=== PATIENT | female | born 1995 | race African-American/Black ===

== ENCOUNTER 2017-06-12 22:31 | Inpatient (IN) | payer MEDICAID ==
[2017-06-12] MEDS: Lactated Ringers 1,000 ML IV SCH (23:10)
[2017-06-12] MEDS: Nalbuphine 10 MG/1 ML Vial IVPUSH ONE (23:20)
--- NOTE | 2017-06-13 00:08 | PCM.LDHP ---
L&D History of Present Illness - General Date of Service: 06/12/17 Admit Problem/Dx: Admission Diagnosis/Problem Admission Diagnosis/Problem 06/12/17 23:57 21 yo G1 EDC 06/21/2017 38 6/7wks. Comes in labor, O+, RI, GBS pos. Source of Information: Patient History Limitations: Reports: No Limitations - History of Present Illness Timing/Duration: Reports: minutes: Location, : Reports: Abdomen Quality: Reports: Stabbing Severity: Severe Pain Score: 8 Improves with: Reports: None Worsens with: Reports: None Associated Symptoms: Reports: N - Related Data Allergies/Adverse Reactions: Allergies Allergy/AdvReac Type Severity Reaction Status Date / Time No Known Allergies Allergy Verified 06/12/17 23:13 H&P Review of Systems - Review of Systems: Review Of Systems: See Below General: Reports: No Symptoms HEENT: Reports: No Symptoms Pulmonary: Reports: No Symptoms Cardiovascular: Reports: No Symptoms Gastrointestinal: Reports: No Symptoms Genitourinary: Reports: No Symptoms Musculoskeletal: Reports: No Symptoms Skin: Reports: No Symptoms Psychiatric: Reports: No Symptoms Neurological: Reports: No Symptoms Hematologic/Lymphatic: Reports: No Symptoms Immunologic: Reports: No Symptoms L&D Exam - Exam Exam: See Below - Vital Signs Weight: 61.235 kg - OB Specific Fundal Height In cm: 39 - Problem List (1) Supervision of normal IUP (intrauterine ) in primigravida SNOMED Code(s): 69598880, [id number], 476691726 ICD Code: Z34.00 - ENCNTR FOR SUPRVSN OF NORMAL FIRST , UNSP TRIMESTER Status: Acute Priority: High Current Visit: Yes Qualifiers: Trimester: third trimester Qualified Code(s): Z34.03 - Encounter for supervision of normal first , third trimester (2) Non-reassuring electronic monitoring tracing SNOMED Code(s): 198003916 ICD Code: O76 - ABNLT IN HEART RATE AND RHYTHM COMP LABOR AND DELIVERY Status: Acute Priority: High Current Visit: Yes Problem List Initiated/Reviewed/Updated: Yes Assessment/Plan Comment:: Labor A:21 yo G1 EDC 06/21/2017 38 6/7wks. Comes in labor, O+, RI, GBS pos. P: Stat due to NRFHT. Dr Ingram called to BS to assess patient. OR staff called to come. Anes here.
[2017-06-13] MEDS ORDERED: ceFAZolin 1 GM in Premix Bag 1 BAG IV ONE (00:11)
[2017-06-13] MEDS ORDERED: Sodium Chloride 0.9% 2.5 ML Syringe FLUSH PRN (00:11)
[2017-06-13] MEDS ORDERED: Sodium Chloride 0.9% 10 ML Syringe FLUSH PRN (00:11)
[2017-06-13] MEDS ORDERED: Citric Acid/Sodium Citrate Solution 30 ML Cup PO SCH (00:15)
[2017-06-13] MEDS ORDERED: Oxytocin/0.9 % Sodium Chloride 30 UNIT/500 ML BAG IV SCH (00:15)
[2017-06-13] MEDS: Lactated Ringers 1,000 ML IV SCH ×3 (00:15→11:24)
[2017-06-13] MEDS ORDERED: Propofol 200 MG/20 ML SDV ONE (00:19)
[2017-06-13] MEDS ORDERED: Midazolam 1 MG/ML 2 ML SDV ONE (00:19)
[2017-06-13] MEDS ORDERED: Rocuronium 10 MG/ML 10 ML Syringe ONE (00:19)
[2017-06-13] MEDS ORDERED: fentaNYL 250 MCG/5 ML SDV ONE (00:19)
[2017-06-13] MEDS ORDERED: Ondansetron 4 MG/2 ML SDV ONE ×2 (00:19→00:53)
[2017-06-13] MEDS ORDERED: Succinylcholine/Normal Saline 200 MG/10 ML Syringe ONE (00:19)
[2017-06-13] MEDS ORDERED: ceFAZolin 1 GM Vial ONE (00:23)
[2017-06-13] MEDS ORDERED: Sodium Chloride 0.9% 20 ML ONE ×2 (00:23→00:48)
[2017-06-13] MEDS ORDERED: Oxytocin 10 Units/1 ML SDV ONE (00:24)
[2017-06-13] MEDS ORDERED: Neostigmine Methylsulfate 1 MG/ML 5 ML Syringe ONE (00:48)
[2017-06-13] MEDS ORDERED: Glycopyrrolate 0.2 MG/ML SDV ONE ×2 (00:48→00:49)
[2017-06-13] MEDS ORDERED: Octyl 2-Cyanoacrylate 1 Tube ONE (00:53)
[2017-06-13] MEDS ORDERED: HYDROmorphone 2 MG/ML SDV ONE (00:58)
[2017-06-13] MEDS ORDERED: Ondansetron 4 MG/2 ML SDV IVPUSH PRN (00:59)
[2017-06-13] MEDS ORDERED: Bisacodyl 10 MG Supp RECTAL PRN (00:59)
[2017-06-13] MEDS ORDERED: diphenhydrAMINE 50 MG/ML SDV IVPUSH PRN (00:59)
[2017-06-13] MEDS ORDERED: Acetaminophen/oxyCODONE 325-5 MG Tab PO PRN (00:59)
[2017-06-13] MEDS ORDERED: Lanolin 100% Cream 7 GM Tube TOP PRN (00:59)
--- NOTE | 2017-06-13 00:59 | PCM.OPNOTE ---
- General Post-Op/Procedure Note Date of Surgery/Procedure: 06/13/17 Operative Procedure(s): Emergency C/Section IUP38+ Pre Op Diagnosis: IUP38+ distress Post-Op Diagnosis: Same Anesthesia Technique: General ET Tube Primary Surgeon: Franck Ingram Box Toe Flanger Stitchdowns: Sandra Duke EBL in mLs: 800 Complications: None Condition: Good
[2017-06-13] MEDS ORDERED: fentaNYL 100 MCG/2 ML SDV IVPUSH PRN (01:26)
[2017-06-13] MEDS ORDERED: Meperidine PF 25 MG/ML Syringe IVPUSH ONE (01:27)
[2017-06-13] MEDS: Ketorolac 30 MG/ML SDV IVPUSH SCH ×4 (01:27→19:25)
--- NOTE | 2017-06-13 01:36 | OR ---
SURGEON: Franck Ingram MD DATE OF PROCEDURE: 06/13/2017 PREOPERATIVE DIAGNOSES: 1. Intrauterine , 38 plus. 2. distress. POSTOPERATIVE DIAGNOSES: 1. Intrauterine , 38 plus. 2. distress. OPERATION PERFORMED: Emergency low transverse section. BALL TRUING MACHINE OPERATOR: Sandra Duke CNM. LACE SEWER: Alexandra Hutchison MD ANESTHESIA: General with endotracheal intubation, Alexsander Fry. ESTIMATED BLOOD LOSS: 800 mL. COMPLICATIONS: None. FINDING: A female fetus in a vertex position, and there were 8 nuchal cord wrapped around the neck of the baby, and there was a thick meconium upon entering the uterus. INDICATION FOR SURGERY: This patient is 21. She is primigravida. She is followed in the clinic primarily with our nurse home care attendant. The patient is 38 plus weeks. She has presented into Labor and Delivery in active labor. At the time of the admission, she was 2 cm with bulging bag of water. However, the patient did have repeat late deceleration with a slow recovery and the heart rate was category 2, so a decision was made to do emergency low transverse section. PROCEDURE IN DETAIL: The patient was brought to the OR, properly identified, and after adequate level of general anesthesia with a Chavez catheter in the bladder, the patient prior to that, prepped and draped in sterile fashion as usual. Low transverse Pfannenstiel skin incision was done. Zurdo fascia and rectus fascia were opened in direction of the incision. The 2 recti muscles were . Peritoneal cavity was entered and then low transverse uterine incision was done and extended manually and the fetus was in the vertex position. It is noted that once the head was delivered, there were 8 nuchal cords wrapped around the baby head and fetus was delivered immediately. The cord was clamped and the fetus was handed to Dr. Hutchison and the resuscitating team for resuscitation immediately and then the placenta delivered spontaneous and then part of this had to be removed manually and the placenta was sent for histopathology, and repair of the lower uterine segment was done with 2-0 Vicryl continuous interlocking in 2 layers. Reperitonealization done with 3-0 Vicryl continuous. Then, the peritoneal cavity evacuated completely from blood and blood clot and closed with 3-0 Vicryl continuous. The rectus fascia was closed with #1 PDS single strand continuous. The Zurdo fascia with 3-0 Vicryl continuous. The skin closed with 3-0 Vicryl on a Constantine needle and Dermabond. Instrument and sponge count were correct. The patient tolerated the procedure well, went to recovery room in stable general condition. At the time of the dictation, the score and the weight of the fetus are not known at this time. KRYSTIAN / CAMMY /[id number]
--- NOTE | 2017-06-13 01:44 | PCM.POSTAN ---
POST ANESTHESIA ASSESSMENT - MENTAL STATUS Mental Status: Alert, Oriented - RESPIRATORY Respiratory Status: Respiratory Rate WNL, Airway Patent, O2 Saturation Stable - CARDIOVASCULAR CV Status: Pulse Rate WNL, Blood Pressure Stable - GASTROINTESTINAL GI Status: No Symptoms - POST OP HYDRATION Hydration Status: Adequate & Stable
--- NOTE | 2017-06-13 02:41 | PCM.PREANE ---
Preanesthetic Assessment - Anesthesia/Transfusion/Family Hx Anesthesia History: Prior Anesthesia Without Reaction Family History of Anesthesia Reaction: No Transfusion History: No Prior Transfusion(s) - Review of Systems General: No Symptoms Pulmonary: No Symptoms Cardiovascular: No Symptoms Gastrointestinal: No Symptoms Neurological: No Symptoms Other: Reports: None - Physical Assessment NPO Status Date: 06/12/17 NPO Status Time: 22:00 O2 Sat by Pulse Oximetry: 98 Respiratory Rate: 27 Vital Signs: Last Vital Signs Temp 96.8 F 06/13/17 01:10 Pulse 79 06/13/17 01:40 Resp 27 H 06/13/17 01:40 BP 136/85 06/13/17 01:40 Pulse Ox 98 06/13/17 01:40 Height: 5 ft 4 in Weight: 61.235 kg ASA Class: 2E Mental Status: Alert & Oriented x3 Airway Class: Mallampati = 2 Dentition: Reports: Normal Dentition Thyro-Mental Finger Breadths: 3 Mouth Opening Finger Breadths: 3 ROM/Head Extension: Full Lungs: Clear to Auscultation, Normal Respiratory Effort Cardiovascular: Regular Rate, Regular Rhythm - Lab Values: Laboratory Last Values WBC 11.09 K/uL (4.0-11.0) H 06/13/17 00:24 RBC 3.87 M/uL (4.30-5.90) L 06/13/17 00:24 Hgb 9.9 g/dL (12.0-16.0) L 06/13/17 00:24 Hct 31.4 % (36.0-46.0) L 06/13/17 00:24 MCV 81.1 fL (80.0-98.0) 06/13/17 00:24 MCH 25.6 pg (27.0-32.0) L 06/13/17 00:24 MCHC 31.5 g/dL (31.0-37.0) 06/13/17 00:24 RDW Std Deviation 44.6 fl (28.0-62.0) 06/13/17 00:24 RDW Coeff of Yonatan 16 % (11.0-15.0) H 06/13/17 00:24 Plt Count 131 K/uL (150-400) L 06/13/17 00:24 Nucleated RBC % 0.8 /100WBC 06/13/17 00:24 Nucleated RBCs # 0 K/uL 06/13/17 00:24 Blood Type O POSITIVE 06/13/17 00:24 Antibody Screen NEGATIVE 06/13/17 00:24 - Allergies Allergies/Adverse Reactions: Allergies Allergy/AdvReac Type Severity Reaction Status Date / Time No Known Allergies Allergy Verified 06/12/17 23:13 - Anesthesia Plan Free Text/Narrative:: Pt with distress on FHR monitor. GETA and RSI, explained to patient and significant other and they wish to proceed at this time. - Acknowledgements Anesthesia Type Planned: General Anesthesia Pt an Appropriate Candidate for the Planned Anesthesia: Yes Alternatives and Risks of Anesthesia Discussed w Pt/Guardian: Yes Pt/Guardian Understands and Agrees with Anesthesia Plan: Yes PreAnesthesia Questionnaire HEENT History: Reports: None Cardiovascular History: Reports: None Respiratory History: Reports: None Gastrointestinal History: Reports: GERD, Other (See Below) Other Gastrointestinal History: Crohn's disease Genitourinary History: Reports: None TIPPLE MECH[employer]IC History: Reports: LMP (Approximate): Musculoskeletal History: Reports: None Neurological History: Reports: None Psychiatric History: Reports: None Endocrine/Metabolic History: Reports: None Hematologic History: Reports: None Immunologic History: Reports: None Oncologic (Cancer) History: Reports: None Dermatologic History: Reports: None - Infectious Disease History Infectious Disease History: Reports: None - SUBSTANCE USE Smoking Status *Q: Never Smoker Recreational Drug Use History: No - CURRENT (IN HOUSE) MEDS Current Meds: Current Medications Bisacodyl (Dulcolax) 10 mg RECTAL .ONCE PRN PRN Reason: Constipation Citric Acid/Sodium Citrate (Bicitra Solution) 30 ml PO .ONCE ARNIE Diphenhydramine HCl (Benadryl) 25 mg IVPUSH Q6H PRN PRN Reason: Itching or Nausea Docusate Sodium (Colace) 100 mg PO BID ARNIE Emollient Ointment (Lansinoh Hpa) 0 gm TOP ASDIRECTED PRN PRN Reason: Sore Nipples Fentanyl (Sublimaze) 50 mcg IVPUSH Q5M PRN PRN Reason: Pain (moderate 4-6) Stop: 06/13/17 03:00 Lactated Ringer's (Ringers, Lactated) 1,000 mls @ 500 mls/hr IV .BOLUS ARNIE Oxytocin/Sodium Chloride (Oxytocin 30 Unit/500 Ml-Ns) 30 unit in 500 mls @ 250 mls/hr IV TITRATE [facility] Lactated Ringer's (Ringers, Lactated) 1,000 mls @ 125 mls/hr IV ASDIRECTED [facility] Ibuprofen (Motrin) 800 mg PO Q8H PRN PRN Reason: mild pain or fever Ketorolac Tromethamine (Toradol) 30 mg IVPUSH Q6H [facility] Stop: 06/14/17 01:01 Last Admin: 06/13/17 01:27 Dose: 30 mg Ondansetron HCl (Zofran) 4 mg IVPUSH Q4H PRN PRN Reason: Nausea/Vomiting Oxycodone/Acetaminophen (Percocet 325-5 Mg) 1 tab PO Q4H PRN PRN Reason: Pain (moderate 4-6) Oxycodone/Acetaminophen (Percocet 325-5 Mg) 2 tab PO Q4H PRN PRN Reason: Pain (moderate 4-6) Sodium Chloride (Saline Flush) 10 ml FLUSH ASDIRECTED PRN PRN Reason: Keep Vein Open Sodium Chloride (Saline Flush) 2.5 ml FLUSH ASDIRECTED PRN PRN Reason: Keep Vein Open Discontinued Medications Cefazolin Sodium (Ancef) Confirm Administered Dose 2 gm .ROUTE .STK-MED ONE Stop: 06/13/17 00:24 Fentanyl (Sublimaze) Confirm Administered Dose 250 mcg .ROUTE .STK-MED ONE Stop: 06/13/17 00:20 Glycopyrrolate (Robinul) Confirm Administered Dose 0.2 mg .ROUTE .STK-MED ONE Stop: 06/13/17 00:49 Glycopyrrolate (Robinul) Confirm Administered Dose 0.2 mg .ROUTE .STK-MED ONE Stop: 06/13/17 00:50 Hydromorphone HCl (Dilaudid) Confirm Administered Dose 2 mg .ROUTE .STK-MED ONE Stop: 06/13/17 00:59 Cefazolin Sodium/Dextrose 1 gm (/ Premix) 50 mls @ 100 mls/hr IV ONETIME ONE Stop: 06/13/17 00:40 Sodium Chloride (Normal Saline) Confirm Administered Dose 20 mls @ as directed .ROUTE .STK-MED ONE Stop: 06/13/17 00:24 Sodium Chloride (Normal Saline) Confirm Administered Dose 20 mls @ as directed .ROUTE .STK-MED ONE Stop: 06/13/17 00:49 Meperidine HCl (Demerol) 25 mg IVPUSH ONETIME ONE Stop: 06/13/17 01:28 Last Admin: 06/13/17 01:40 Dose: 25 mg Midazolam HCl (Versed 1 Mg/Ml) Confirm Administered Dose 2 mg .ROUTE .STK-MED ONE Stop: 06/13/17 00:20 Nalbuphine HCl (Nubain) 10 mg IVPUSH ONETIME ONE Stop: 06/12/17 23:15 Neostigmine Methylsulfate (Neostigmine) Confirm Administered Dose 5 mg .ROUTE .STK-MED ONE Stop: 06/13/17 00:49 Octyl Cyanoacrylate (Dermabond Advance) Confirm Administered Dose 1 applic .ROUTE .STK-MED ONE Stop: 06/13/17 00:54 Ondansetron HCl (Zofran) Confirm Administered Dose 4 mg .ROUTE .STK-MED ONE Stop: 06/13/17 00:20 Ondansetron HCl (Zofran) Confirm Administered Dose 4 mg .ROUTE .STK-MED ONE Stop: 06/13/17 00:54 Oxytocin (Pitocin) Confirm Administered Dose 20 unit .ROUTE .STK-MED ONE Stop: 06/13/17 00:25 Propofol (Diprivan 20 Ml) Confirm Administered Dose 200 mg .ROUTE .STK-MED ONE Stop: 06/13/17 00:20 Rocuronium [place] (Zemuron) Confirm Administered Dose 100 mg .ROUTE .STK-MED ONE Stop: 06/13/17 00:20 Succinylcholine Chloride (Succinylcholine In Ns Pf) Confirm Administered Dose 200 mg .ROUTE .STK-MED ONE Stop: 06/13/17 00:20
[2017-06-13] MEDS: Morphine 4 MG/ML Syringe IVPUSH PRN ×2 (03:23→06:34)
[2017-06-13] MEDS: Nalbuphine 10 MG/1 ML Vial IVPUSH ONE (07:19)
[2017-06-13] MEDS: Docusate Sodium 100 MG Cap PO SCH ×2 (08:58→21:16)
--- NOTE | 2017-06-13 09:18 | PCM48HPAN ---
Post Anesthesia Note - EVALUATION WITHIN 48HRS OF ANESTHETIC Vital Signs in Normal Range: Yes Patient Participated in Evaluation: Yes Respiratory Function Stable: Yes Airway Patent: Yes Cardiovascular Function Stable: Yes Hydration Status Stable: Yes Pain Control Satisfactory: Yes Nausea and Vomiting Control Satisfactory: Yes Mental Status Recovered: Yes Resp Rate: 18
--- NOTE | 2017-06-13 13:07 | PCM48HPAN ---
Post Anesthesia Note - EVALUATION WITHIN 48HRS OF ANESTHETIC Vital Signs in Normal Range: Yes Patient Participated in Evaluation: Yes Respiratory Function Stable: Yes Airway Patent: Yes Cardiovascular Function Stable: Yes Hydration Status Stable: Yes Pain Control Satisfactory: Yes Nausea and Vomiting Control Satisfactory: Yes Resp Rate: 18
--- NOTE | 2017-06-13 13:52 | PCM.SURGPN ---
- General Info Date of Service: 06/13/17 POD#: 1 Functional Status: Reports: Pain Controlled - Review of Systems General: Reports: No Symptoms HEENT: Reports: No Symptoms Pulmonary: Reports: No Symptoms Cardiovascular: Reports: No Symptoms Gastrointestinal: Reports: No Symptoms Genitourinary: Reports: No Symptoms Musculoskeletal: Reports: No Symptoms Skin: Reports: No Symptoms Neurological: Reports: No Symptoms Psychiatric: Reports: No Symptoms - Patient Data Vitals - Most Recent: Last Vital Signs Temp 37.3 C 06/13/17 04:00 Pulse 82 06/13/17 04:00 Resp 18 06/13/17 13:07 BP 134/70 06/13/17 04:00 Pulse Ox 98 06/13/17 04:00 Weight - Most Recent: 61.235 kg I&O - Last 24 Hours: Intake & Output 06/12/17 06/13/17 06/13/17 22:59 06:59 14:59 Intake Total 1900 1000 Output Total 350 Balance 1550 1000 Lab Results Last 24 Hrs: Laboratory Results - last 24 hr 06/13/17 06/13/17 Range/Units 00:24 00:24 WBC 11.09 H (4.0-11.0) K/uL RBC 3.87 L (4.30-5.90) M/uL Hgb 9.9 L (12.0-16.0) g/dL Hct 31.4 L (36.0-46.0) % MCV 81.1 (80.0-98.0) fL MCH 25.6 L (27.0-32.0) pg MCHC 31.5 (31.0-37.0) g/dL RDW Std Deviation 44.6 (28.0-62.0) fl RDW Coeff of Yonatan 16 H (11.0-15.0) % Plt Count 131 L (150-400) K/uL Nucleated RBC % 0.8 /100WBC Nucleated RBCs # 0 K/uL Blood Type O POSITIVE Antibody Screen NEGATIVE Med Orders - Current: Current Medications Bisacodyl (Dulcolax) 10 mg RECTAL .ONCE PRN PRN Reason: Constipation Citric Acid/Sodium Citrate (Bicitra Solution) 30 ml PO .ONCE ARNIE Diphenhydramine HCl (Benadryl) 25 mg IVPUSH Q6H PRN PRN Reason: Itching or Nausea Docusate Sodium (Colace) 100 mg PO BID [facility] Last Admin: 06/13/17 08:58 Dose: 100 mg Emollient Ointment (Lansinoh Hpa) 0 gm TOP ASDIRECTED PRN PRN Reason: Sore Nipples Lactated Ringer's (Ringers, Lactated) 1,000 mls @ 500 mls/hr IV .BOLUS [facility] Last Admin: 06/13/17 00:15 Dose: 500 mls/hr Oxytocin/Sodium Chloride (Oxytocin 30 Unit/500 Ml-Ns) 30 unit in 500 mls @ 250 mls/hr IV TITRATE [facility] Lactated Ringer's (Ringers, Lactated) 1,000 mls @ 125 mls/hr IV ASDIRECTED [facility] Last Admin: 06/13/17 11:24 Dose: 125 mls/hr Ibuprofen (Motrin) 800 mg PO Q8H PRN PRN Reason: mild pain or fever Ketorolac Tromethamine (Toradol) 30 mg IVPUSH Q6H [facility] Stop: 06/14/17 01:01 Last Admin: 06/13/17 13:13 Dose: 30 mg Morphine Sulfate (Morphine) 4 mg IVPUSH Q3H PRN PRN Reason: Pain Last Admin: 06/13/17 06:34 Dose: 4 mg Ondansetron HCl (Zofran) 4 mg IVPUSH Q4H PRN PRN Reason: Nausea/Vomiting Oxycodone/Acetaminophen (Percocet 325-5 Mg) 1 tab PO Q4H PRN PRN Reason: Pain (moderate 4-6) Oxycodone/Acetaminophen (Percocet 325-5 Mg) 2 tab PO Q4H PRN PRN Reason: Pain (moderate 4-6) Sodium Chloride (Saline Flush) 10 ml FLUSH ASDIRECTED PRN PRN Reason: Keep Vein Open Sodium Chloride (Saline Flush) 2.5 ml FLUSH ASDIRECTED PRN PRN Reason: Keep Vein Open Discontinued Medications Cefazolin Sodium (Ancef) Confirm Administered Dose 2 gm .ROUTE .STK-MED ONE Stop: 06/13/17 00:24 Fentanyl (Sublimaze) Confirm Administered Dose 250 mcg .ROUTE .STK-MED ONE Stop: 06/13/17 00:20 Fentanyl (Sublimaze) 50 mcg IVPUSH Q5M PRN PRN Reason: Pain (moderate 4-6) Stop: 06/13/17 03:00 Glycopyrrolate (Robinul) Confirm Administered Dose 0.2 mg .ROUTE .STK-MED ONE Stop: 06/13/17 00:49 Glycopyrrolate (Robinul) Confirm Administered Dose 0.2 mg .ROUTE .STK-MED ONE Stop: 06/13/17 00:50 Hydromorphone HCl (Dilaudid) Confirm Administered Dose 2 mg .ROUTE .STK-MED ONE Stop: 06/13/17 00:59 Cefazolin Sodium/Dextrose 1 gm (/ Premix) 50 mls @ 100 mls/hr IV ONETIME ONE Stop: 06/13/17 00:40 Last Admin: 06/13/17 03:34 Dose: Not Given Sodium Chloride (Normal Saline) Confirm Administered Dose 20 mls @ as directed .ROUTE .ST-MED ONE Stop: 06/13/17 00:24 Sodium Chloride (Normal Saline) Confirm Administered Dose 20 mls @ as directed .ROUTE .ST-MED ONE Stop: 06/13/17 00:49 Meperidine HCl (Demerol) 25 mg IVPUSH ONETIME ONE Stop: 06/13/17 01:28 Last Admin: 06/13/17 01:40 Dose: 25 mg Midazolam HCl (Versed 1 Mg/Ml) Confirm Administered Dose 2 mg .ROUTE .ST-MED ONE Stop: 06/13/17 00:20 Nalbuphine HCl (Nubain) 10 mg IVPUSH ONETIME ONE Stop: 06/12/17 23:15 Last Admin: 06/13/17 07:19 Dose: Not Given Neostigmine Methylsulfate (Neostigmine) Confirm Administered Dose 5 mg .ROUTE .ST-MED ONE Stop: 06/13/17 00:49 Octyl Cyanoacrylate (Dermabond Advance) Confirm Administered Dose 1 applic .ROUTE .ST-MED ONE Stop: 06/13/17 00:54 Ondansetron HCl (Zofran) Confirm Administered Dose 4 mg .ROUTE .STK-MED ONE Stop: 06/13/17 00:20 Ondansetron HCl (Zofran) Confirm Administered Dose 4 mg .ROUTE .ST-MED ONE Stop: 06/13/17 00:54 Oxytocin (Pitocin) Confirm Administered Dose 20 unit .ROUTE .STK-MED ONE Stop: 06/13/17 00:25 Propofol (Diprivan 20 Ml) Confirm Administered Dose 200 mg .ROUTE .STK-MED ONE Stop: 06/13/17 00:20 Rocuronium [place] (Zemuron) Confirm Administered Dose 100 mg .ROUTE .STK-MED ONE Stop: 06/13/17 00:20 Succinylcholine Chloride (Succinylcholine In Ns Pf) Confirm Administered Dose 200 mg .ROUTE .STK-MED ONE Stop: 06/13/17 00:20 - Exam Wound/Incisions: Healing Well General: Alert, Oriented HEENT: Pupils Equal Neck: Supple Lungs: Clear to Auscultation, Normal Respiratory Effort Cardiovascular: Regular Rate, Regular Rhythm GI/Abdominal Exam: Normal Bowel Sounds, Soft, Non-Tender, No Organomegaly, No Distention, No Abnormal Bruit, No Mass, Pelvis Stable Extremities: Normal Inspection, Normal Range of Motion, Non-Tender, No Pedal Edema, Normal Capillary Refill Skin: Warm, Dry, Intact Neurological: No New Focal Deficit Psy/Mental Status: Alert, Normal Affect, Normal Mood - Problem List Review Problem List Initiated/Reviewed/Updated: Yes - My Orders Last 24 Hours: Active Orders 24 hr Category Date Time Status Patient Status [ADT] Routine ADT 06/13/17 00:59 Active Ambulate [RC] PER UNIT ROUTINE Care 06/13/17 00:59 Active Antiembolic Devices [RC] PER UNIT ROUTINE Care 06/13/17 01:00 Active Communication Order [RC] PER UNIT ROUTINE Care 06/13/17 00:59 Active Communication Order [RC] PER UNIT ROUTINE Care 06/13/17 00:59 Active Communication Order [RC] Per Unit Routine Care 06/13/17 00:59 Active May Shower [RC] ASDIRECTED Care 06/13/17 00:59 Active Notify Provider Vital Signs [RC] PRN Care 06/13/17 00:12 Active RT Incentive Spirometry [RC] Q2HWA Care 06/13/17 00:59 Active Up ad Mackenzie [RC] ASDIRECTED Care 06/13/17 00:11 Active Vital Signs [RC] PER UNIT ROUTINE Care 06/13/17 00:11 Active Vital Signs [RC] PER UNIT ROUTINE Care 06/13/17 00:59 Active Regular Diet [DIET] Diet 06/13/17 Lunch Active HEMOGLOBIN/HEMATOCRIT,HH [HEME] Timed Lab 06/14/17 05:11 Ordered Acetaminophen/oxyCODONE [Percocet 325-5 MG] Med 06/13/17 00:59 Active 1 tab PO Q4H PRN Acetaminophen/oxyCODONE [Percocet 325-5 MG] Med 06/13/17 00:59 Active 2 tab PO Q4H PRN Bisacodyl [Dulcolax] Med 06/13/17 00:59 Active 10 mg RECTAL .ONCE PRN Citric Acid/Sodium Citrate [Bicitra Solution] Med 06/13/17 00:15 Active 30 ml PO .ONCE Docusate Sodium [Colace] Med 06/13/17 09:00 Active 100 mg PO BID Ibuprofen [Motrin] Med 06/14/17 07:00 Active 800 mg PO Q8H PRN Ketorolac [Toradol] Med 06/13/17 01:00 Active 30 mg IVPUSH Q6H Lactated Ringers [Ringers, Lactated] 1,000 ml Med 06/13/17 00:15 Active IV .BOLUS Lactated Ringers [Ringers, Lactated] 1,000 ml Med 06/13/17 01:00 Active IV ASDIRECTED Lanolin [Lansinoh HPA] Med 06/13/17 00:59 Active See Dose Instructions TOP ASDIRECTED PRN Morphine Med 06/13/17 03:10 Active 4 mg IVPUSH Q3H PRN Ondansetron [Zofran] Med 06/13/17 00:59 Active 4 mg IVPUSH Q4H PRN Oxytocin/0.9 % Sodium Chloride [Oxytocin 30 Unit/500 ML Med 06/13/17 00:15 Active -NS] 30 unit in 500 ml IV TITRATE Sodium Chloride 0.9% [Saline Flush] Med 06/13/17 00:11 Active 10 ml FLUSH ASDIRECTED PRN Sodium Chloride 0.9% [Saline Flush] Med 06/13/17 00:11 Active 2.5 ml FLUSH ASDIRECTED PRN diphenhydrAMINE [Benadryl] Med 06/13/17 00:59 Active 25 mg IVPUSH Q6H PRN Assess Lochia [WOMSER] Per Unit Routine Oth 06/13/17 00:59 Ordered Assess Uterine Involution [WOMSER] Per Unit Routine Oth 06/13/17 00:59 Ordered Breast Pump [WOMSER] Per Unit Routine Oth 06/13/17 00:59 Ordered Peripheral IV Discontinue [OM.PC] Routine Oth 06/13/17 00:59 Ordered Peripheral IV Insertion Adult [OM.PC] Routine Oth 06/13/17 00:11 Ordered Schedule Procedure [COMM] Per Unit Routine Oth 06/13/17 00:11 Ordered Sequential Compression Device [OM.PC] Per Unit Routine Oth 06/13/17 00:59 Ordered Resuscitation Status Routine Resus Stat 06/13/17 00:11 Ordered Medication Orders Bisacodyl (Dulcolax) 10 mg RECTAL .ONCE PRN PRN Reason: Constipation Citric Acid/Sodium Citrate (Bicitra Solution) 30 ml PO .ONCE ARNIE Diphenhydramine HCl (Benadryl) 25 mg IVPUSH Q6H PRN PRN Reason: Itching or Nausea Docusate Sodium (Colace) 100 mg PO BID [facility] Last Admin: 06/13/17 08:58 Dose: 100 mg Emollient Ointment (Lansinoh Hpa) 0 gm TOP ASDIRECTED PRN PRN Reason: Sore Nipples Lactated Ringer's (Ringers, Lactated) 1,000 mls @ 500 mls/hr IV .BOLUS [facility] Last Admin: 06/13/17 00:15 Dose: 500 mls/hr Infusion: 06/13/17 00:15 Dose: 500 mls/hr Admin: 06/12/17 23:10 Dose: 500 mls/hr Oxytocin/Sodium Chloride (Oxytocin 30 Unit/500 Ml-Ns) 30 unit in 500 mls @ 250 mls/hr IV TITRATE [facility] Lactated Ringer's (Ringers, Lactated) 1,000 mls @ 125 mls/hr IV ASDIRECTED [facility] Last Admin: 06/13/17 11:24 Dose: 125 mls/hr Infusion: 06/13/17 11:24 Dose: 125 mls/hr Admin: 06/13/17 03:24 Dose: 125 mls/hr Ibuprofen (Motrin) 800 mg PO Q8H PRN PRN Reason: mild pain or fever Ketorolac Tromethamine (Toradol) 30 mg IVPUSH Q6H [facility] Stop: 06/14/17 01:01 Last Admin: 06/13/17 13:13 Dose: 30 mg Admin: 06/13/17 07:27 Dose: 30 mg Admin: 06/13/17 01:27 Dose: 30 mg Morphine Sulfate (Morphine) 4 mg IVPUSH Q3H PRN PRN Reason: Pain Last Admin: 06/13/17 06:34 Dose: 4 mg Admin: 06/13/17 03:23 Dose: 4 mg Ondansetron HCl (Zofran) 4 mg IVPUSH Q4H PRN PRN Reason: Nausea/Vomiting Oxycodone/Acetaminophen (Percocet 325-5 Mg) 1 tab PO Q4H PRN PRN Reason: Pain (moderate 4-6) Oxycodone/Acetaminophen (Percocet 325-5 Mg) 2 tab PO Q4H PRN PRN Reason: Pain (moderate 4-6) Sodium Chloride (Saline Flush) 10 ml FLUSH ASDIRECTED PRN PRN Reason: Keep Vein Open Sodium Chloride (Saline Flush) 2.5 ml FLUSH ASDIRECTED PRN PRN Reason: Keep Vein Open - Assessment Assessment (Free Text/Narrative):: Status post emergency section postoperative day #1 the patient is doing well there is no vaginal bleeding incision is clear she is ambulatory Chavez catheter is out and she is on regular diet - Plan Plan (Free Text/Narrative):: The patient continued to do well we are planning to discharge her home in a.m.
[2017-06-13] MEDS: Acetaminophen/oxyCODONE 325-5 MG Tab PO PRN ×2 (20:07→23:57)
[2017-06-14] MEDS: Ketorolac 30 MG/ML SDV IVPUSH SCH (01:20)
[2017-06-14] MEDS ORDERED: Ibuprofen 800 MG Tab PO PRN (07:00)
[2017-06-14] MEDS: Docusate Sodium 100 MG Cap PO SCH ×2 (07:51→09:00)
[2017-06-14] MEDS: Acetaminophen/oxyCODONE 325-5 MG Tab PO PRN ×2 (07:52→12:41)
--- NOTE | 2017-06-14 08:59 | PCM.DCSUM1 ---
Discharge Summary - Discharge Data Discharge Date: 06/14/17 Discharge Disposition: Home, Self-Care 01 Condition: Good - Patient Summary/Data Operative Procedure(s) Performed: Emergency C/Section [id number] - Patient Instructions Diet: Usual Diet as Tolerated Activity: As Tolerated Driving: Do Not Drive Showering/Bathing: August Shower Wound/Incision Care: Keep Operative Site/Wound Site Clean and Dry Notify Provider of: Fever, Increased Pain - Discharge Plan Referrals: [facility] [Outside] Sandra Duke CNM [Primary Care Provider] - ( week- June 21@ 10:45am w/ Dr. Ingram week- July 25 @ 3:00pm w/ Sandra Duke ) - General Info Date of Service: 06/14/17 Functional Status: Reports: Pain Controlled - Review of Systems General: Reports: No Symptoms HEENT: Reports: No Symptoms Pulmonary: Reports: No Symptoms Cardiovascular: Reports: No Symptoms Gastrointestinal: Reports: No Symptoms Genitourinary: Reports: No Symptoms Musculoskeletal: Reports: No Symptoms Skin: Reports: No Symptoms Neurological: Reports: No Symptoms Psychiatric: Reports: No Symptoms - Patient Data Vitals - Most Recent: Last Vital Signs Temp 37.4 C 06/14/17 08:00 Pulse 85 06/14/17 08:00 Resp 18 06/14/17 08:00 BP 134/75 06/14/17 08:00 Pulse Ox 98 06/14/17 08:00 Weight - Most Recent: 61.235 kg I&O - Last 24 hours: Intake & Output 06/13/17 06/14/17 06/14/17 22:59 06:59 14:59 Intake Total 2189 Output Total 1300 Balance 889 Lab Results - Last 24 hrs: Laboratory Results - last 24 hr 06/14/17 Range/Units 05:06 Hgb 7.0 L (12.0-16.0) g/dL Hct 22.0 L (36.0-46.0) % Med Orders - Current: Current Medications Bisacodyl (Dulcolax) 10 mg RECTAL .ONCE PRN PRN Reason: Constipation Citric Acid/Sodium Citrate (Bicitra Solution) 30 ml PO .ONCE ARNIE Diphenhydramine HCl (Benadryl) 25 mg IVPUSH Q6H PRN PRN Reason: Itching or Nausea Docusate Sodium (Colace) 100 mg PO BID [facility] Last Admin: 06/14/17 07:51 Dose: 100 mg Emollient Ointment (Lansinoh Hpa) 0 gm TOP ASDIRECTED PRN PRN Reason: Sore Nipples Lactated Ringer's (Ringers, Lactated) 1,000 mls @ 500 mls/hr IV .BOLUS [facility] Last Admin: 06/13/17 00:15 Dose: 500 mls/hr Oxytocin/Sodium Chloride (Oxytocin 30 Unit/500 Ml-Ns) 30 unit in 500 mls @ 250 mls/hr IV TITRATE [facility] Lactated Ringer's (Ringers, Lactated) 1,000 mls @ 125 mls/hr IV ASDIRECTED [facility] Last Admin: 06/13/17 11:24 Dose: 125 mls/hr Ibuprofen (Motrin) 800 mg PO Q8H PRN PRN Reason: mild pain or fever Last Admin: 06/14/17 07:52 Dose: 800 mg Morphine Sulfate (Morphine) 4 mg IVPUSH Q3H PRN PRN Reason: Pain Last Admin: 06/13/17 06:34 Dose: 4 mg Ondansetron HCl (Zofran) 4 mg IVPUSH Q4H PRN PRN Reason: Nausea/Vomiting Oxycodone/Acetaminophen (Percocet 325-5 Mg) 1 tab PO Q4H PRN PRN Reason: Pain (moderate 4-6) Last Admin: 06/14/17 07:52 Dose: 1 tab Oxycodone/Acetaminophen (Percocet 325-5 Mg) 2 tab PO Q4H PRN PRN Reason: Pain (moderate 4-6) Sodium Chloride (Saline Flush) 10 ml FLUSH ASDIRECTED PRN PRN Reason: Keep Vein Open Sodium Chloride (Saline Flush) 2.5 ml FLUSH ASDIRECTED PRN PRN Reason: Keep Vein Open Discontinued Medications Cefazolin Sodium (Ancef) Confirm Administered Dose 2 gm .ROUTE .STK-MED ONE Stop: 06/13/17 00:24 Fentanyl (Sublimaze) Confirm Administered Dose 250 mcg .ROUTE .STK-MED ONE Stop: 06/13/17 00:20 Fentanyl (Sublimaze) 50 mcg IVPUSH Q5M PRN PRN Reason: Pain (moderate 4-6) Stop: 06/13/17 03:00 Glycopyrrolate (Robinul) Confirm Administered Dose 0.2 mg .ROUTE .STK-MED ONE Stop: 06/13/17 00:49 Glycopyrrolate (Robinul) Confirm Administered Dose 0.2 mg .ROUTE .STK-MED ONE Stop: 06/13/17 00:50 Hydromorphone HCl (Dilaudid) Confirm Administered Dose 2 mg .ROUTE .STK-MED ONE Stop: 06/13/17 00:59 Cefazolin Sodium/Dextrose 1 gm (/ Premix) 50 mls @ 100 mls/hr IV ONETIME ONE Stop: 06/13/17 00:40 Last Admin: 06/13/17 03:34 Dose: Not Given Sodium Chloride (Normal Saline) Confirm Administered Dose 20 mls @ as directed .ROUTE .ST-MED ONE Stop: 06/13/17 00:24 Sodium Chloride (Normal Saline) Confirm Administered Dose 20 mls @ as directed .ROUTE .[facility]-MED ONE Stop: 06/13/17 00:49 Ketorolac Tromethamine (Toradol) 30 mg IVPUSH Q6H ARNIE Stop: 06/14/17 01:01 Last Admin: 06/14/17 01:20 Dose: 30 mg Meperidine HCl (Demerol) 25 mg IVPUSH ONETIME ONE Stop: 06/13/17 01:28 Last Admin: 06/13/17 01:40 Dose: 25 mg Midazolam HCl (Versed 1 Mg/Ml) Confirm Administered Dose 2 mg .ROUTE .ST-MED ONE Stop: 06/13/17 00:20 Nalbuphine HCl (Nubain) 10 mg IVPUSH ONETIME ONE Stop: 06/12/17 23:15 Last Admin: 06/13/17 07:19 Dose: Not Given Neostigmine Methylsulfate (Neostigmine) Confirm Administered Dose 5 mg .ROUTE .STK-MED ONE Stop: 06/13/17 00:49 Octyl Cyanoacrylate (Dermabond Advance) Confirm Administered Dose 1 applic .ROUTE .ST-MED ONE Stop: 06/13/17 00:54 Ondansetron HCl (Zofran) Confirm Administered Dose 4 mg .ROUTE .STK-MED ONE Stop: 06/13/17 00:20 Ondansetron HCl (Zofran) Confirm Administered Dose 4 mg .ROUTE .STK-MED ONE Stop: 06/13/17 00:54 Oxytocin (Pitocin) Confirm Administered Dose 20 unit .ROUTE .STK-MED ONE Stop: 06/13/17 00:25 Propofol (Diprivan 20 Ml) Confirm Administered Dose 200 mg .ROUTE .STK-MED ONE Stop: 06/13/17 00:20 Rocuronium [place] (Zemuron) Confirm Administered Dose 100 mg .ROUTE .STK-MED ONE Stop: 06/13/17 00:20 Succinylcholine Chloride (Succinylcholine In Ns Pf) Confirm Administered Dose 200 mg .ROUTE .STK-MED ONE Stop: 06/13/17 00:20 - Exam General: Reports: Alert, Oriented HEENT: Reports: Pupils Equal, Pupils Reactive, EOMI, Mucous Membr. Moist/[place] Neck: Reports: Supple Lungs: Reports: Clear to Auscultation, Normal Respiratory Effort Cardiovascular: Reports: Regular Rate, Regular Rhythm GI/Abdominal Exam: Normal Bowel Sounds, Soft, Non-Tender, No Organomegaly, No Distention, No Abnormal Bruit, No Mass, Pelvis Stable (Female) Exam: Normal External Exam, Normal Speculum Exam, Normal Bimanual Exam Rectal (Female) Exam: Normal Exam, Normal Rectal Tone Back Exam: Reports: Normal Inspection, Full Range of Motion Extremities: Normal Inspection, Normal Range of Motion, Non-Tender, No Pedal Edema, Normal Capillary Refill Skin: Reports: Warm, Dry, Intact Wound/Incisions: Reports: Healing Well Neurological: Reports: No New Focal Deficit Psy/Mental Status: Reports: Alert, Normal Affect, Normal Mood *Q Meaningful Use (DIS) - VTE *Q VTE Criteria *Q: - Stroke *Q Stroke Criteria *Q: - AMI *Q AMI Criteria *Q:
== END 2017-06-14 13:00 | disposition home or self-care (01) | DRG 766 ==
LOC: MW.OBCHECK 22:31 → MW.OB 22:33 → MW.OBCHECK 06-13 00:11 → MW.OB 06-13 01:55
PROVIDERS: ADMIT Obstetrics & Gynecology; ATTEND Obstetrics & Gynecology
PROC: 10D00Z1 Extraction of Products of Conception, Low, Open Approach (ICD-10-PCS; principal; 2017-06-13)
DX: O76 Abnormality in fetal heart rate and rhythm complicating labor and delivery (principal); Z3A.38 38 weeks gestation of pregnancy; Z37.0 Single live birth
CPT/HCPCS: 01961; 36415; 59025; 85014; 85018; 85027; 86850; 86900; 86901; 88307; A9270-GY; J0690; J1170; J1885; J2175; J2250; J2270; J2300; J2405; J2590; J2704; J3010; J7120